=== PATIENT | female | born 1945 | race Caucasian/White ===

== ENCOUNTER → 2020-01-05 | Outpatient (CLI) | payer MEDICARE ==
[~2020-01-05] MED LIST: AMIODARONE HCL200 MG PO; AMLODIPINE BESYL5 MG PO; ASPIRIN CHEW81 MG PO; CLOPIDOGREL75 MG PO; FISH OIL 1,2001 EAC1 PO; FLECAINIDE ACE100 MG PO; LEVOTHYROXINE125 MCG PO; METOPROLOL TAR100 MG PO; PRAVASTATIN SOD40 MG PO; [UNRECOGNIZED DRUG - OTHER] PO
--- NOTE | 2020-01-05 10:45 | Diagnostic Imaging Report ---
CT of the chest, without contrast. History: Hemoptysis. Comparison: None available. Technique: Multidetector CT scanning of the chest was performed from the level of the apices to the upper abdomen without contrast. Coronal and sagittal multiplanar reformations were obtained. RADIATION DOSE: Total DLP: 275.08 mGy*cm Dose modulation, iterative reconstruction, and/or weight based adjustment of the mA/kV was utilized to reduce the radiation dose to as low as reasonably achievable. FINDINGS: The thyroid and remaining visualized structures within the base of the neck demonstrate no significant abnormalities. The thoracic aorta is normal in caliber with extensive atherosclerotic calcifications within its course and branch vessels including the coronary arteries. A left subclavian arterial stent is noted. Patency cannot be determined on this noncontrast enhanced examination. The heart appears mildly enlarged. Left-sided pacing device identified with transvenous leads extending to the right atrium and ventricle. There is mediastinal and left hilar lymphadenopathy. An anterior mediastinal lymph node measures 2.0 cm in short axis (axial image 37). A left hilar lymph node measures 1.9 cm in short axis (axial image 61). The trachea and proximal airways are patent. There are centrilobular emphysematous changes present, more prominent within the upper lobes. There is a 2.1 x 3.2 cm mass identified within the left lower lobe (axial image 99). Additionally, there is a spiculated nodule identified within the right upper lobe measuring 1.4 x 2.4 cm (axial image 64). A 6 mm pulmonary nodule is identified within the right lower lobe (axial image 93). Calcified granulomas are noted within the lingula. Areas of subsegmental atelectasis are noted within the right upper lobe and bilateral lower lobes. Limited images of the upper abdomen demonstrate atherosclerotic calcifications within the abdominal aorta and branch vessels. There is a 0.9 cm hypodensity identified within the left hepatic lobe which is too small to definitively characterize. The osseous structures entry degenerative changes without evidence for acute fracture or destructive process. The extrathoracic soft tissues are unremarkable. IMPRESSION: 3.2 cm mass identified within the left lower lobe. Additionally there are right-sided pulmonary nodules with a spiculated nodule within the right upper lobe measuring up to 2.4 cm. Findings are worrisome for a malignant process. There is mediastinal and left hilar lymphadenopathy concerning for metastatic disease. Further evaluation is recommended with tissue sampling, characterization with PET/CT, or short-term CT follow-up. Centrilobular emphysematous changes. Extensive atherosclerosis and coronary artery disease. Signed by: Dr. Ankur Bruce MD on 01/05/2020 10:41 AM
== END ==
LOC: CT 08:58
PROVIDERS: ATTEND Family Medicine
DX: R04.2 Hemoptysis (principal)
CPT/HCPCS: 71250